=== PATIENT | male | born 1980 | race Caucasian/White ===

== ENCOUNTER 2023-02-22 14:53 | Outpatient (CLI) | payer BC, SELFPAY ==
--- NOTE | 2023-02-22 | CT_ITS ---
WS: [id number] CT ABDOMEN AND PELVIS NONCONTRAST HISTORY: RENAL STONE TECHNIQUE: Imaging performed through the abdomen and pelvis. Coronal and sagittal reformats are submi tted. All CT scans at [facility] use at least one of these dose optimization techniques: auto mated exposure control; mA and/or kV adjustment per patient size (includes targeted exams where dose is matched to clinical indication); or iterative reconstruction. DLP: 321.03 mGy.cm COMPARISON: 10/24/2017 Lower thorax: Lung bases are clear. Visualized heart is normal. No hiatal hernia. Liver: Normal size liver. No mass or bile duct dilatation. Gallbladder: Normal gallbladder. No pericholecystic fluid or cholelithiasis. No gallbladder wall thic [place]. Pancreas: Normal size and attenuation. Normal pancreatic duct. No pancreatitis or mass. Spleen: Normal. Adrenal glands: Mild thickening of the LEFT adrenal gland. Mild LEFT adrenal hyperplasia. Negative RI GHT adrenal gland. Right kidney: Mild perinephric stranding around the RIGHT kidney, greatest along the mid to lower fernando e. The inflammation is new since 2018. No stones or obstruction identified. Left kidney: Normal size kidney with no mass or hydronephrosis. Aorta: Mild atherosclerosis aorta. No aneurysm. No free fluid, intraperitoneal air or significant lymphadenopathy. GI tract: Normal appearance of the stomach and small bowel. No obstruction. Mild diffuse constipation . Prior appendectomy. No diverticulosis. Abdominal wall: Negative. No hernia. Pelvis: No free fluid or adenopathy. Urinary bladder is well distended. Osseous structures: Unremarkable. IMPRESSION: 1. No renal calcifications or obstruction. 2. New mild perinephric stranding around the mid to lower RIGHT kidney. Correlate with possible urin lorne tract infection or pyelonephritis. There are no obstructing calcifications. 3. Prior appendectomy. 4. No free fluid or adenopathy.
--- NOTE | 2023-02-22 16:00 | US_ITS ---
WS: [id number] SCROTAL ULTRASOUND EXAMINATION CLINICAL INFORMATION: pain COMPARISON: None. FINDINGS: TESTES Normal in size and echotexture, without focal lesion. Color Doppler: Normal color Doppler flow pattern. Right testes size: 4.2 cm x 2.1 cm x 1.6 cm. Left testes size: 3.1 cm x 2.7 cm x 2.0 cm. EPIDIDYMIDES Normal in size and echotexture, without focal lesion. Color Doppler: Normal color Doppler flow pattern. Right epididymis size: 0.9 cm x cm x cm. Left epididymis size: 1.2 cm x cm x cm. HYDROCELE None. VARICOCELE Tortuous bilateral varicoceles more extensive on the RIGHT. RIGHT varicocele measures approximately 2 to 3 cm in maximum dimension in some areas. LEFT varicocele is similar in appearance measuring 2 to 3 cm in some areas. OTHER FINDINGS None. IMPRESSION: 1. Normal testicles bilaterally with normal vascularity. 2. Bilateral varicoceles more prominent on the RIGHT described above. 3. No other suspicious findings.
== END 2023-02-22 14:54 | disposition home or self-care (01) ==
PROVIDERS: PCP Family Medicine; Visit Provider Family Medicine
DX: N50.819 Testicular pain, unspecified (principal); R10.9 Unspecified abdominal pain; N28.9 Disorder of kidney and ureter, unspecified; Z90.89 Acquired absence of other organs
CPT/HCPCS: 74176; 76870

== ENCOUNTER 2023-04-26 14:58 | Outpatient (CLI) | payer BC, SELFPAY ==
--- NOTE | 2023-04-26 15:05 | CT_ITS ---
WS: [id number] CT ABDOMEN AND PELVIS NONCONTRAST HISTORY: ACUTE PYELONEPHRITIS TECHNIQUE: Imaging performed through the abdomen and pelvis. Coronal and sagittal reformats are submi tted. All CT scans at [facility] use at least one of these dose optimization techniques: auto mated exposure control; mA and/or kV adjustment per patient size (includes targeted exams where dose is matched to clinical indication); or iterative reconstruction. DLP: 297.57 mGy.cm COMPARISON: 02/22/2023 Lower thorax: Lung bases are clear. Visualized heart is normal. No hiatal hernia. Liver: Normal size liver. No mass or bile duct dilatation. Gallbladder: Normal gallbladder. No pericholecystic fluid or cholelithiasis. No gallbladder wall thic [place]. Pancreas: Normal size and attenuation. Normal pancreatic duct. No pancreatitis or mass. Spleen: Normal. Adrenal glands: Mild LEFT adrenal hyperplasia is unchanged. RIGHT adrenal gland is negative. Right kidney: There is mild perinephric stranding around the lower pole of the RIGHT kidney. No obstr uction of the kidney. Left kidney: Very minimal perinephric stranding around the lower pole. No obstruction or calcificatio n. Aorta: Mild atherosclerosis abdominal aorta with no aneurysm. No free fluid, intraperitoneal air or significant lymphadenopathy. GI tract: Normal noncontrast imaging of the stomach, small bowel and colon. No obstruction or wall th ickening. Prior appendectomy. Abdominal wall: Negative. No hernia. Pelvis: Negative. Osseous structures: Unremarkable. IMPRESSION: 1. No renal obstruction or calcifications. 2. Very minimal persistent perinephric stranding around the lower pole of each kidney. This may be c hronic. No significant interval change since 02/22/2023. 3. No adenopathy.
== END 2023-04-26 14:59 | disposition home or self-care (01) ==
LOC: RAD 14:58
PROVIDERS: PCP Family Medicine; Visit Provider Nurse Practitioner Family
DX: N10 Acute pyelonephritis (principal)
CPT/HCPCS: 74176

== ENCOUNTER → 2023-07-12 15:16 | Outpatient (BNVA) | payer BC, SELFPAY | PROVIDERS: PCP Family Medicine; Visit Provider Family Medicine | DX: N15.9 Renal tubulo-interstitial disease, unspecified (principal) | CPT/HCPCS: 80053; 80061; 81000; 83036; 84439; 84443; 85025 ==

== ENCOUNTER → 2024-03-04 07:56 | Outpatient (BNVA) | payer BC, SELFPAY | PROVIDERS: PCP Family Medicine | DX: N15.9 Renal tubulo-interstitial disease, unspecified (principal); R07.9 Chest pain, unspecified | CPT/HCPCS: 81000; 93005 ==